=== PATIENT | female | born 1985 ===

== ENCOUNTER 2016-08-04 03:25 | Emergency (ER) | payer SELFPAY ==
[2016-08-04 03:28] VITALS: BP 122/91; PULSE 93; RESP 22; O2SAT 100
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
[2016-08-04] MEDS ORDERED: Lidocaine-Epi-Tetracaine Solution 3 mL Syringe TOPICAL ONE (03:50)
[2016-08-04 04:41] VITALS: BP 141/97; PULSE 107; O2SAT 91
== END 2016-08-04 04:43 ==
LOC: SED 03:25
DX: Z02.89 Encounter for other administrative examinations (principal); T25.011A Burn of unspecified degree of right ankle, initial encounter; T31.0 Burns involving less than 10% of body surface; X12.XXXA Contact with other hot fluids, initial encounter; Y92.9 Unspecified place or not applicable; Y93.G3 Activity, cooking and baking; Y99.8 Other external cause status; Z86.19 Personal history of other infectious and parasitic diseases